=== PATIENT | female | born 1970 ===

== ENCOUNTER 2018-02-28 07:52 | Day surgery (SDC) | payer MEDICAID ==
[2018-02-28] MEDS ORDERED: Lactated Ringer's 500 ML IV ONE (08:10)
[2018-02-28 08:16] VITALS: BMI 27.1
[2018-02-28 08:24] VITALS: TEMP 97; O2SAT 100
[2018-02-28] MEDS ORDERED: Propofol 10 mg/ml Inj (20 ML) ONE (10:16)
[2018-02-28 11:13] VITALS: BP 102/69; PULSE 59; RESP 19
== END 2018-02-28 12:00 | disposition home or self-care (01) ==
LOC: H.ENDO 07:52
PROVIDERS: ATTEND Internal Medicine Gastroenterology
DX: K52.9 Noninfective gastroenteritis and colitis, unspecified (principal); K57.30 Diverticulosis of large intestine without perforation or abscess without bleeding; K30 Functional dyspepsia; K29.70 Gastritis, unspecified, without bleeding
CPT/HCPCS: 43239; 45380; 88305; J2001; J2704; J7120